=== PATIENT | male | born 1955 | race Caucasian/White ===

== ENCOUNTER 2023-12-16 20:40 | Inpatient (IN) | payer MEDICAID, MEDICARE ==
[~2023-12-16] VITALS: Ht 170.2 cm; Wt 150.9 kg
[~2023-12-16 20:40] MED LIST: AMLO1TAB22 PO; HYDR25TA88 PO
[2023-12-16 21:45] LABS: Urine Bacteria None Seen /hpf (None Seen); Urine WBC None Seen /hpf (0 - 3)
[2023-12-16 21:51] LABS: Eosinophils # (auto) 0.3 10 ^3/uL (0-0.8); Eosinophils % (auto) 2.3 % (0.0-7.0); Lymphocytes # (auto) 1.9 10 ^3/uL (0.4-5.4); Monocytes # (auto) 0.5 10 ^3/uL (0-1.3); Nucleated Red Blood Cells % 0.1 %; Red Cell Distribution Width 14.3 % (11.8-14.3)
[2023-12-16 21:52] LABS: Basophils # (auto) 0.2 10 ^3/uL (0-0.2); Basophils % (auto) 1.3 % (0.0-2.0); Hematocrit 35.5 % (41.0-53.0); Hemoglobin 11.6 g/dL (13.5-17.5); Lymphocytes % (auto) 14.9 % (10.0-50.0); Mean Corpuscular Hgb Conc. 32.7 g/dL (32.0-36.0); Mean Corpuscular Volume 94.8 fL (80.0-100.0); Monocytes % (auto) 4.1 % (0.0-12.0); Neutrophils % (auto) 77.4 % (37.0-80.0); Red Blood Cells 3.74 10^6/uL (4.5-5.90); White Blood Cell 12.9 10^3/uL (4.4-10.8)
[2023-12-16 22:02] LABS: Chloride 110 mmol/L (98-107); Potassium 5.3 mmol/L (3.5-5.1); Sodium 138 mmol/L (136-145)
[2023-12-16 22:03] LABS: Anion Gap 9 (5-15); Carbon Dioxide 19 mmol/L (20-30)
[2023-12-16 22:04] LABS: Calcium 9.3 mg/dL (8.5-10.1)
[2023-12-16 22:08] LABS: BUN/Creatinine Ratio 16.2 (10.0-20.0); Blood Urea Nitrogen 58 mg/dL (9-23); Glucose 117 mg/dL (74-106)
[2023-12-16 22:12] LABS: Urine Blood 3+ /uL (Negative); Urine Clarity Turbid (Clear); Urine Color Light-Red (Yellow); Urine Protein, UAD 2+ (Negative); Urine Specific Gravity 1.009 (1.001-1.035); Urine Urobilinogen Normal (Negative)
[2023-12-16 22:20] LABS: INR 0.91 (0.9-1.15); Prothrombin Time 9.7 sec (9.3-11.8)
[2023-12-17] MEDS ORDERED: ONDANSETRON HCL 4 MG/2 ML VIAL IV PRN (00:45)
[2023-12-17] MEDS ORDERED: NITROGLYCERIN 0.4 MG SL TAB SL PRN (00:45)
[2023-12-17] MEDS ORDERED: MORPHINE SULFATE INJ 2 MG/ml SYRG IV PRN (00:45)
[2023-12-17] MEDS ORDERED: TEMAZEPAM 15 MG CAP PO PRN (00:45)
[2023-12-17 02:04] LABS: Hematocrit 36.4 % (41.0-53.0); Hemoglobin 11.5 g/dL (13.5-17.5)
[2023-12-17 09:11] VITALS: PULSE 83; RESP 14; O2SAT 94
[2023-12-17] MEDS: cefTRIAXone 1GM/50ML D5W 50 ML IV SCH (09:42)
[2023-12-17] MEDS: cefTRIAXone 1GM/50ML D5W 50 ML IV ONE (09:48)
[2023-12-17] MEDS: SOTALOL HCL 80 MG TAB PO SCH (10:59)
[2023-12-17] MEDS: AMIODARONE HCL 200 MG TAB PO SCH (11:00)
[2023-12-17] MEDS: NIFEdipine ER 30 MG TAB PO SCH (11:00)
[2023-12-17] MEDS: FUROSEMIDE 40 MG TAB PO SCH (11:01)
[2023-12-17] MEDS: SODIUM BICARB 50mEq/50ml Vial 50 ML in SOD CHL 0.45% 1,000 ML IV SCH (11:05)
[2023-12-17 12:28] LABS: Phosphorus 2.4 mg/dL (2.4-5.1)
[2023-12-17 13:46] LABS: Magnesium 1.9 mg/dL (1.6-2.6)
[2023-12-17] MEDS ORDERED: KETAMINE 50mg/ML 1ml syringe ONE (14:37)
[2023-12-17] MEDS ORDERED: MIDAZOLAM HCL 2MG/2ML 2ml VIAL (1mg/ml) ONE (14:38)
[2023-12-17] MEDS ORDERED: ONDANSETRON HCL 4 MG/2 ML VIAL ONE (14:38)
[2023-12-17] MEDS ORDERED: GLYCOPYRROLATE 0.2 MG/ML 1ML VIAL ONE (14:38)
[2023-12-17] MEDS ORDERED: fentaNYL CITRATE 100 MCG/2 ML VL ONE (15:02)
[2023-12-17 15:24] VITALS: O2SAT 97
[2023-12-17] MEDS ORDERED: HYDROmorphone HCL 2 MG/ML VL/or syr IV PRN (15:45)
[2023-12-17] MEDS ORDERED: APIX5TAB PO (17:15)
[2023-12-17] MEDS ORDERED: FURO40TA4 PO (17:15)
[2023-12-17] MEDS ORDERED: NIFE1TAB30 PO (17:15)
[2023-12-17] MEDS ORDERED: SOTA80TA PO (17:15)
[2023-12-17] MEDS ORDERED: AMIO200T33 PO (17:15)
[2023-12-17] MEDS ORDERED: POTA8TAB38 PO (17:16)
[2023-12-17 17:44] VITALS: BP 126/78; PULSE 69; RESP 18; TEMP 98.1; O2SAT 95; O2SAT 96
[2023-12-17 18:00] VITALS: BP 146/75; PULSE 72; RESP 18; TEMP 97.8; O2SAT 95
[2023-12-17 20:00] VITALS: BP 122/61; PULSE 67; PULSE 71; RESP 18; TEMP 98.3; O2SAT 92
[2023-12-17 21:00] VITALS: BP 122/61; PULSE 71; RESP 18; TEMP 98.3; O2SAT 92
[2023-12-18] VITALS (8 sets, daily range): BP systolic 112–137; BP diastolic 49–63; PULSE 57–90; RESP 17–20; TEMP 98.1–98.5; O2SAT 90–98
[2023-12-18 06:41] LABS: Basophils # (auto) 0 10 ^3/uL (0-0.2); Basophils % (auto) 0.2 % (0.0-2.0); Eosinophils # (auto) 0 10 ^3/uL (0-0.8); Eosinophils % (auto) 0.1 % (0.0-7.0); Hematocrit 34.2 % (41.0-53.0); Hemoglobin 10.6 g/dL (13.5-17.5); Lymphocytes # (auto) 0.7 10 ^3/uL (0.4-5.4); Lymphocytes % (auto) 5.1 % (10.0-50.0); Mean Corpuscular Hemoglobin 29.5 pg (28.0-32.0); Mean Corpuscular Hgb Conc. 31.1 g/dL (32.0-36.0); Mean Corpuscular Volume 94.8 fL (80.0-100.0); Monocytes # (auto) 0.3 10 ^3/uL (0-1.3); Monocytes % (auto) 2.5 % (0.0-12.0); Neutrophils # (auto) 12.6 10 ^3/uL (1.6-8.6); Neutrophils % (auto) 92.1 % (37.0-80.0); Red Blood Cells 3.61 10^6/uL (4.5-5.90); Red Cell Distribution Width 14.3 % (11.8-14.3); White Blood Cell 13.7 10^3/uL (4.4-10.8)
[2023-12-18 06:51] LABS: Alanine Aminotransferase 15 U/L (7-40); Albumin 3.6 g/dL (3.2-4.8); Alkaline Phosphatase 73 U/L (46-116); Anion Gap 10 (5-15); Aspartate Aminotransferase 17 U/L (13-40); BUN/Creatinine Ratio 13.2 (10.0-20.0); Blood Urea Nitrogen 58 mg/dL (9-23); Calcium 9.4 mg/dL (8.5-10.1); Carbon Dioxide 19 mmol/L (20-30); Chloride 108 mmol/L (98-107); Glucose 99 mg/dL (74-106); Potassium 4.4 mmol/L (3.5-5.1); Sodium 137 mmol/L (136-145)
[2023-12-18 06:52] LABS: Bilirubin, Total 0.3 mg/dL (0.2-1.0); Total Protein 5.8 g/dL (5.7-8.2)
[2023-12-18] MEDS: LIDOCAINE 2% TOPICAL JELLY 5 ML URJT TOP ONE (11:58)
[2023-12-18] MEDS: LIDOCAINE 2% JELLY 11ml (GLYDO) ONE (11:58)
[2023-12-18] MEDS: SODIUM BICARB 50mEq/50ml Vial 100 ML in SOD CHL 0.45% 1,000 ML IV SCH (13:45)
[2023-12-19] VITALS (8 sets, daily range): BP systolic 112–144; BP diastolic 50–89; PULSE 53–63; RESP 16–20; TEMP 97.5–98.2; O2SAT 90–96
[2023-12-19 08:01] LABS: Protein, Urine 51.4 mg/dL (0.0-11.9)
[2023-12-19 08:04] LABS: Creatinine, Urine 11.22 mg/dL (30.0-125.0); Creatinine, Urine 11.39 mg/dL (30.0-125.0); Urine Protein/Creatinine Ratio 4.58
[2023-12-19 08:05] LABS: Urine Bacteria FEW /hpf (None Seen); Urine Blood 3+ /uL (Negative); Urine Clarity Turbid (Clear); Urine Color Colorless (Yellow); Urine Mucus FEW (None Seen); Urine Protein, UAD 1+ (Negative); Urine Specific Gravity 1.006 (1.001-1.035); Urine Urobilinogen Normal (Negative); Urine WBC 114 /hpf (0 - 3); Urine pH 5.5 (5.0-9.0)
[2023-12-19 14:47] LABS: Basophils # (auto) 0 10 ^3/uL (0-0.2); Basophils % (auto) 0.2 % (0.0-2.0); Eosinophils # (auto) 0.1 10 ^3/uL (0-0.8); Eosinophils % (auto) 0.6 % (0.0-7.0); Hematocrit 31.8 % (41.0-53.0); Hemoglobin 10.1 g/dL (13.5-17.5); Lymphocytes # (auto) 1.4 10 ^3/uL (0.4-5.4); Lymphocytes % (auto) 7.2 % (10.0-50.0); Mean Corpuscular Hemoglobin 29.7 pg (28.0-32.0); Mean Corpuscular Hgb Conc. 31.7 g/dL (32.0-36.0); Mean Corpuscular Volume 93.9 fL (80.0-100.0); Monocytes # (auto) 0.7 10 ^3/uL (0-1.3); Monocytes % (auto) 3.5 % (0.0-12.0); Neutrophils # (auto) 17.1 10 ^3/uL (1.6-8.6); Neutrophils % (auto) 88.5 % (37.0-80.0); Nucleated Red Blood Cells % 0.1 %; Red Blood Cells 3.39 10^6/uL (4.5-5.90); Red Cell Distribution Width 14.1 % (11.8-14.3); White Blood Cell 19.3 10^3/uL (4.4-10.8)
[2023-12-19] MEDS: LACTULOSE 20Gm/30ML SOLN PO ONE (15:00)
[2023-12-19 15:01] LABS: Alanine Aminotransferase 17 U/L (7-40); Albumin 3.7 g/dL (3.2-4.8); Alkaline Phosphatase 77 U/L (46-116); Anion Gap 11 (5-15); Aspartate Aminotransferase 17 U/L (13-40); BUN/Creatinine Ratio 15.1 (10.0-20.0); Blood Urea Nitrogen 64 mg/dL (9-23); Calcium 9.1 mg/dL (8.7-10.4); Carbon Dioxide 20 mmol/L (20-30); Chloride 103 mmol/L (98-107); Glucose 105 mg/dL (74-106); Potassium 4.5 mmol/L (3.5-5.1); Sodium 134 mmol/L (136-145)
[2023-12-19 15:02] LABS: Bilirubin, Total 0.2 mg/dL (0.2-1.0); Total Protein 6.2 g/dL (5.7-8.2)
[2023-12-19 15:06] LABS: Platelet Estimate Decreased
[2023-12-20] VITALS (9 sets, daily range): BP systolic 104–136; BP diastolic 48–72; PULSE 53–60; RESP 18–20; TEMP 97.5–98.9; O2SAT 90–98
[2023-12-21 01:00] VITALS: BP 106/50; PULSE 60; RESP 18; TEMP 98.2; O2SAT 94
[2023-12-21 05:00] VITALS: BP 132/54; PULSE 58; RESP 17; TEMP 97.7; O2SAT 96
[2023-12-21 07:49] LABS: Basophils # (auto) 0 10 ^3/uL (0-0.2); Basophils % (auto) 0.4 % (0.0-2.0); Eosinophils # (auto) 0.2 10 ^3/uL (0-0.8); Eosinophils % (auto) 2.9 % (0.0-7.0); Hematocrit 33.8 % (41.0-53.0); Hemoglobin 10.5 g/dL (13.5-17.5); Lymphocytes # (auto) 1.4 10 ^3/uL (0.4-5.4); Lymphocytes % (auto) 20.7 % (10.0-50.0); Mean Corpuscular Hemoglobin 29.4 pg (28.0-32.0); Mean Corpuscular Hgb Conc. 31.1 g/dL (32.0-36.0); Mean Corpuscular Volume 94.3 fL (80.0-100.0); Monocytes # (auto) 0.5 10 ^3/uL (0-1.3); Neutrophils # (auto) 4.8 10 ^3/uL (1.6-8.6); Nucleated Red Blood Cells % 0.2 %; Red Blood Cells 3.58 10^6/uL (4.5-5.90); Red Cell Distribution Width 14.2 % (11.8-14.3); White Blood Cell 6.9 10^3/uL (4.4-10.8)
[2023-12-21 07:53] LABS: Alanine Aminotransferase 25 U/L (7-40); Alkaline Phosphatase 73 U/L (46-116); Anion Gap 11 (5-15); BUN/Creatinine Ratio 13.6 (10.0-20.0); Blood Urea Nitrogen 56 mg/dL (9-23); Calcium 8.8 mg/dL (8.5-10.1); Carbon Dioxide 22 mmol/L (20-30); Chloride 110 mmol/L (98-107); Glucose 94 mg/dL (74-106); Potassium 4.3 mmol/L (3.5-5.1); Sodium 143 mmol/L (136-145)
[2023-12-21 07:55] LABS: Albumin 3.4 g/dL (3.2-4.8); Aspartate Aminotransferase 19 U/L (13-40); Bilirubin, Total 0.2 mg/dL (0.2-1.0); Total Protein 5.7 g/dL (5.7-8.2)
[2023-12-21 08:00] VITALS: PULSE 60; O2SAT 94
[2023-12-21 09:00] VITALS: BP 111/56; PULSE 57; RESP 20; TEMP 98.5; O2SAT 94
[2023-12-21] MEDS ORDERED: CIPR-173 PO (10:12)
[2023-12-21 13:00] VITALS: BP 127/66; PULSE 60; RESP 20; TEMP 98.5; O2SAT 94
[2023-12-21 14:11] VITALS: BP 127/66; PULSE 60; RESP 20; TEMP 98.5; O2SAT 94
== END 2023-12-21 15:18 | disposition home or self-care (01) | DRG 871 ==
LOC: ER 20:40 → TELE 12-17 00:58 → TELE-EAST 12-17 17:39
PROVIDERS: ADMIT Family Medicine; ATTEND Family Medicine
PROC: 0TCB8ZZ Extirpation of Matter from Bladder, Via Natural or Artificial Opening Endoscopic (ICD-10-PCS; principal; 2023-12-17 14:53)
PROC: 0T7D8ZZ Dilation of Urethra, Via Natural or Artificial Opening Endoscopic (ICD-10-PCS; 2023-12-17 14:53)
DX: A41.9 Sepsis, unspecified organism (principal); I50.23 Acute on chronic systolic (congestive) heart failure; D68.9 Coagulation defect, unspecified; I13.0 Hypertensive heart and chronic kidney disease with heart failure and stage 1 through stage 4 chronic kidney disease, or unspecified chronic kidney disease; N13.6 Pyonephrosis; N17.9 Acute kidney failure, unspecified; N18.4 Chronic kidney disease, stage 4 (severe); Z68.43 Body mass index [BMI] 50.0-59.9, adult; R31.0 Gross hematuria; D69.6 Thrombocytopenia, unspecified; E87.5 Hyperkalemia; I48.91 Unspecified atrial fibrillation; E66.9 Obesity, unspecified; N32.3 Diverticulum of bladder; N32.89 Other specified disorders of bladder; Z79.01 Long term (current) use of anticoagulants; Z82.5 Family history of asthma and other chronic lower respiratory diseases; Z87.442 Personal history of urinary calculi; Z95.810 Presence of automatic (implantable) cardiac defibrillator
CPT/HCPCS: 36415; 71045; 74176; 76775; 80048; 80053; 81001; 82306; 82570; 83735; 83880; 83970; 84100; 84156; 84300; 85014; 85018; 85025; 85610; 86850; 86900; 86901; 87040; 87086; 93005; G0378; J2250; J2405